=== PATIENT | female | born 1965 | race Two or more races ===

== ENCOUNTER → 2024-11-23 | Outpatient (CLI) | payer MEDICAID, SELFPAY ==
--- NOTE | 2024-11-23 10:00 | XR_ITS ---
Examination: Screening digital mammography, bilateral Computer aided detection 3-D breast Tomosynthesis, bilateral Date and time of exam: November 23, 2024 0944 hours Compared to mammograms dating to November 30, 2013 Indication: Screening Technique: Nonmagnified MLO, CC views of the breasts to been obtained, reconstructed from 3-D Tomosynthesis images. R2 computer aided detection program utilized for evaluation of suspicious masses and/or abnormal calcifications. 3-D Tomosynthesis images obtained. Findings: Scattered areas of fibroglandular density. Benign calcifications. No interval suspicious masses Impression: BI-RADS category II: Benign Findings. Recommend 1 year follow-up mammogram.
== END | disposition home or self-care (01) ==
PROVIDERS: Referring Provider Nurse Practitioner Primary Care; Visit Provider Nurse Practitioner Primary Care
DX: Z12.31 Encounter for screening mammogram for malignant neoplasm of breast (principal); R92.323 Mammographic fibroglandular density, bilateral breasts; R92.1 Mammographic calcification found on diagnostic imaging of breast
CPT/HCPCS: 77063; 77067

== ENCOUNTER 2025-09-20 23:22 | Emergency (ER) | payer MEDICAID, SELFPAY ==
[2025-09-20 23:23] VITALS: BP 151/93; PULSE 94; RESP 20; TEMP 36.8; O2SAT 100
[2025-09-20] MEDS: DIPHTH,PERTUSS(ACELL),TET VAC 0.5 ML SYR- ADULT IMi (23:51)
--- NOTE | 2025-09-21 00:11 | EDNOTE_ITS ---
ED Wound/Laceration-RME/HPI General Chief Complaint: Hand/Wrist Problems Stated Complaint: LAC TO LEFT FINGER Time Seen by Provider: 09/20/25 23:41 Arrival date/time: 09/20/25 23:22 59F with history of DM presents to ED with L index finger avulsion while carving turkey. Patient has not had a tetanus shot in the past 5 years. Limitations: no limitations Related Data Previous Rx's ?Medication ?Instructions ?Recorded cephalexin 750 mg capsule 750 mg PO BID 7 days #14 cap s 09/21/25 Allergies Allergy/AdvReac Type Severity Reaction Status Date / Time No Known Allergies Allergy Verified 09/20/25 23:23 Review of Systems Review of Systems Systems Reviewed: All systems reviewed, normal except as documented Integumentary/Breasts Skin/Breast: Reports as per HPI and Reports skin pain Past Medical History Social History SMOKING STATUS: Never smoker ED Exam General Limitations: Present no limitations General appearance: Present alert and in no apparent distress Head Head exam: Present atraumatic Neck Neck exam: Present normal inspection, full ROM and trachea midline Chest Chest inspection: Present normal inspection and symmetric chest wall rise Extremities Exam Extremities exam: Present full ROM Expanded Upper Extremity Exam Hand exam: Present full ROM and skin avulsion (L index finger (dorsal)) Neurological Exam Neurological exam: Present alert and oriented X3 Psychiatric Psychiatric exam: Present normal affect and normal mood Skin Skin exam: Present warm, dry, intact and normal color Course Quality Measures none Orders Category Date Time Status Wound Care NOW Care 09/20/25 23:41 Active TET,DIP/PERT AC (Adult)-Tdap [Boostrix Adult (Tdap) Med 09/20/25 23:42 Discontinued Vacc] 0.5 ml IMI .ONCE ONE cephALEXin [Keflex] Med 09/20/25 23:41 Discontinued 500 mg PO X1 ONE Vital Signs Vital signs: Vital Signs Temperature 98.2 F 09/20/25 23:23 Pulse Rate 94 09/20/25 23:23 Respiratory Rate 20 09/20/25 23:23 Blood Pressure 151/93 H 09/20/25 23:23 Pulse Oximetry (%) 100 09/20/25 23:23 Oxygen Delivery Method Room Air 09/20/25 23:23 O2 at 100% on RA and WNLs Wound / Laceration MDM Narrative MDM Narrative:: 59F with history of DM presents to ED with L index finger avulsion while carving turkey. Patient has not had a tetanus shot in the past 5 years. Physical exam reveals partial L index finger avulsion (dorsal). ROM intact. Pat ient is afebrile, calm, and alert. Skin cleaned/irrigated and closed with Surgicel. Tdap and ABX prophylaxis given. Patient data External records reviewed:: None Clinical information provided by:: patient Social determinants that could affect healthcare access:: none Patient has the following chronic illnesses:: DM How is presenting disease/condition affected by chronic disease/condition?: caused by Evaluation data The following diagnostics were reviewed and interpreted by me:: other (specify) (none) Lab and/or radiology exams considered but not ordered:: not ordered Interpretation Summary: n/a Medications / Prescriptions Medications or Prescriptions considered but not ordered:: ordered Medication administrations:: Medication Administration History Discontinued Medications Cephalexin HCl (Cephalexin 250 Mg Capsule) 500 mg PO X1 ONE Stop: 09/20/25 23:42 Last Admin: 09/20/25 23:51 Dose: 500 mg Documented By: KENDY Diphtheria/Tetanus/Acell Pertussis (Diphth,Pertuss(Acell),Tet Vac 0.5 Ml Syr- Adult) 0.5 ml IMi .ONCE ONE Stop: 09/20/25 23:43 Last Admin: 09/20/25 23:51 Dose: 0.5 ml Documented By: KENDY above Consultations Consultation(s) initiated? (list below): No Diagnosis Wound Differential Diagnosis: laceration, abrasion and avulsion of skin Most likely diagnosis given after review of the tests above:: skin avulsion Admission Indicated Admission indicated?: not indicated Admission Request Was there a request for admission?: No Disposition Plan Disposition Plan: Discharge Discharge Attestation Discharge Attestation: The patient and all family members were given an opportunity to ask questions and understood the discharge instructions. Discharge instructions specifically effects, indications for sooner follow up or return to the emergency department, and the expected course of current diagnosis. Patient condition: Stable Discharge Plan Plan Patient Disposition: HOME (Self Care) Discharge Disposition comment: Stable Prescriptions/Referrals Prescriptions/Med Rec: New cephalexin 750 mg capsule 750 mg PO BID 7 Days Qty: 14 0RF Problem List Clinical Impression: Avulsion of skin Patient/Caregiver Discharge Instructions Education Materials: ED Skin Avulsion Additional Instructions: Please follow-up with PCP within 24-48 hours and return immediately if symptoms worsen. Print Language: Kittitian Stand Alone Forms: Patient Portal Info Letter PA/MRI SPECIAL PROCEDURES TECHNOLOGIST Supervising Physician PA/MRI SPECIAL PROCEDURES TECHNOLOGIST Supervising Physician: Dr. Parikh
== END 2025-09-21 00:13 | disposition home or self-care (01) ==
LOC: SERX 09-21 02:17
PROVIDERS: Emergency Provider Emergency Medicine; PCP Nurse Practitioner Primary Care
DX: S61.201A Unspecified open wound of left index finger without damage to nail, initial encounter (principal); W26.9XXA Contact with unspecified sharp object(s), initial encounter; Y93.G1 Activity, food preparation and clean up; Z23 Encounter for immunization
CPT/HCPCS: 90471; 90715; 99281; A9270